=== PATIENT | male | born 1975 | race Caucasian/White ===

== ENCOUNTER 2018-04-29 11:13 | Emergency (ER) | payer OTHER ==
[~2018-04-29] VITALS: Ht 175.3 cm; Wt 99.8 kg
[2018-04-29] MEDS ORDERED: NORCO 5-325 TA1 EACH PO (12:51)
[2018-04-29] MEDS ORDERED: ZOFRAN ODT4 MG PO (12:51)
[2018-04-29 14:02] VITALS: BP 119/68
== END 2018-04-29 13:55 | disposition home or self-care (01) ==
LOC: ER 11:13
DX: S42.351A Displaced comminuted fracture of shaft of humerus, right arm, initial encounter for closed fracture (principal); F17.200 Nicotine dependence, unspecified, uncomplicated; W18.39XA Other fall on same level, initial encounter; Y92.89 Other specified places as the place of occurrence of the external cause; Y93.89 Activity, other specified; Y99.8 Other external cause status